=== PATIENT | male | born 1985 | race Two or more races ===

== ENCOUNTER 2019-11-15 20:53 | Emergency (ER) | payer SELFPAY ==
[2019-11-15] MEDS ORDERED: ONDANSETRON HCL/PF 4 MG/2 ML VIAL ONE (21:16)
[2019-11-15] MEDS ORDERED: MAG HYDROX/AL HYDROX/SIMETH 30 ML UDC ONE (21:16)
[2019-11-15] MEDS ORDERED: LIDOCAINE VISCOUS 2% UD 15 ML UDC ONE (21:16)
[2019-11-15] MEDS ORDERED: MORPHINE SULFATE INJ 4 MG/ML DISP.SYRIN ONE (21:16)
[2019-11-15] MEDS ORDERED: IV NS 0.9% 1,000 ML BAG IV ONE (21:30)
[2019-11-15] MEDS ORDERED: MAG HYDROX/AL HYDROX/SIMETH 30 ML UDC PO ONE (21:30)
[2019-11-15] MEDS ORDERED: LIDOCAINE VISCOUS 2% UD 15 ML UDC MM ONE (21:30)
[2019-11-15] MEDS ORDERED: PANTOPRAZOLE 40 MG VIAL IV ONE (21:30)
[2019-11-15] MEDS ORDERED: ONDANSETRON HCL/PF 4 MG/2 ML VIAL IVP ONE (21:30)
[2019-11-15] MEDS ORDERED: MORPHINE SULFATE INJ 2 MG/ML DISP.SYRIN IV ONE (21:30)
[2019-11-15] MEDS ORDERED: PANTOPRAZOLE 40 MG VIAL ONE (21:36)
[2019-11-15] MEDS ORDERED: POTASSIUM CHLORIDE 20 MEQ TAB.PRT.SR PO ONE ×2 (22:07→22:30)
== END 2019-11-15 22:23 | disposition home or self-care (01) ==
DX: R10.13 Epigastric pain (principal); R11.0 Nausea; E87.6 Hypokalemia; Z72.89 Other problems related to lifestyle; Z87.891 Personal history of nicotine dependence
CPT/HCPCS: 36415; 71045; 80048; 80076; 83690; 84484; 85025; 93005; 96361; 96374; 96375; 99285; C9113; J2270; J2405; J7030